=== PATIENT | male | born 1985 | race African-American/Black ===

== ENCOUNTER 2022-11-02 12:33 | Observation (INO) | payer BC ==
[~2022-11-02 12:33] MED LIST: Iopamidol 370 76% 100 ML VIAL ONE
[2022-11-02] MEDS ORDERED: Labetalol HCl 100 MG/20 ML VIAL ONE (13:09)
[2022-11-02 13:28] LABS: #Eosinphils 0.1 10x3/uL (0.0-0.5); #Monocytes 0.7 10x3/uL (0.0-1.1); #Neutrophils 4.7 10x3/uL (1.5-8.4); %Basophils 0.4 % (0.0-2.0); %Eosinophils 0.8 % (0.0-6.0); %Lymphocytes 23.3 % (18.0-47.0); %Monocytes 9.3 % (0.0-10.0); %Neutrophils 65.6 % (40.0-75.0); Hemoglobin 13.8 g/dL (13.5-17.5); Mean Corpuscular Hemoglobin 29.1 pg (27.0-33.0); Mean Corpuscular Volume 85.7 fl (81.2-95.1); Mean Platelet Volume 8.7 fl (7.4-10.4); Platelet Count 175 10x3/uL (150-450); RBC Distribution Width 13.1 % (11.5-14.5); Red Blood Cell (RBC) Count 4.74 10x6/uL (4.32-5.72); White Blood Cell (WBC) Count 7.2 10x3/uL (3.5-10.5)
[2022-11-02 13:35] LABS: PTT 28.2 sec (22.0-33.0); Prothrombin Time 11.2 sec (9.5-12.1)
[2022-11-02 13:50] LABS: ALT (SGPT) 27 U/L (8-55); AST (SGOT) 18 U/L (5-34); Albumin 4.4 g/dL (3.5-5.0); Alkaline Phosphatase 62 U/L (40-110); Anion Gap 18 mmol/L (10-20); BUN (Urea Nitrogen) 9 mg/dL (8.9-20.6); Bilirubin, Total 0.5 mg/dL (0.2-1.2); Calc. Creatinine Clearance 0 mL/min (70-130); Calcium 9.2 mg/dL (7.8-10.44); Carbon Dioxide 20 mmol/L (22-29); Chloride 105 mmol/L (98-107); Estimated GFR 113; Globulin 3.7 g/dL (2.4-3.5); Glucose 98 mg/dL (70-105); Protein, Total 8.1 g/dL (6.0-8.3); Sodium 139 mmol/L (136-145)
[2022-11-02] MEDS ORDERED: Aspirin Chewable 81 MG TAB ONE (14:52)
[2022-11-02] MEDS ORDERED: hydrALAZINE 20 MG/ML VIAL SLOW IVP PRN (15:06)
[2022-11-02] MEDS ORDERED: Ondansetron PF 4 MG/2 ML Vial IVP PRN (15:07)
[2022-11-02] MEDS ORDERED: Ondansetron ODT 4 MG TAB PO PRN (15:07)
[2022-11-02] MEDS ORDERED: Acetaminophen 325 MG TAB PO PRN (15:07)
[2022-11-02] MEDS ORDERED: hydrALAZINE 20 MG/ML VIAL ONE (16:13)
[2022-11-02 18:11] VITALS: BMI 85.7
[2022-11-02] MEDS ORDERED: Atorvastatin Calcium 40 MG TAB PO SCH (18:30)
[2022-11-02 20:18] LABS: Hemoglobin A1c 5.5 % (4.0-6.0)
[2022-11-02] MEDS: Atorvastatin Calcium 40 MG TAB PO SCH ×2 (20:35→20:36)
[2022-11-03 05:10] LABS: #Eosinphils 0.1 10x3/uL (0.0-0.5); #Monocytes 0.8 10x3/uL (0.0-1.1); %Basophils 0.4 % (0.0-2.0); %Eosinophils 1.4 % (0.0-6.0); %Lymphocytes 32.2 % (18.0-47.0); %Monocytes 10.5 % (0.0-10.0); %Neutrophils 55.1 % (40.0-75.0); Hemoglobin 13.2 g/dL (13.5-17.5); Mean Corpuscular HGB CONC 32.9 g/dL (32.0-36.0); Mean Corpuscular Hemoglobin 28.5 pg (27.0-33.0); Mean Corpuscular Volume 86.6 fl (81.2-95.1); Mean Platelet Volume 8.7 fl (7.4-10.4); Platelet Count 169 10x3/uL (150-450); RBC Distribution Width 13.3 % (11.5-14.5); Red Blood Cell (RBC) Count 4.63 10x6/uL (4.32-5.72); White Blood Cell (WBC) Count 7.3 10x3/uL (3.5-10.5)
[2022-11-03 05:23] LABS: Anion Gap 17 mmol/L (10-20); BUN (Urea Nitrogen) 8 mg/dL (8.9-20.6); Calc. Creatinine Clearance 380 mL/min (70-130); Calcium 9.2 mg/dL (7.8-10.44); Carbon Dioxide 17 mmol/L (22-29); Cardiac Risk 5.3 (Less than 4.5); Chloride 107 mmol/L (98-107); Cholesterol 158 mg/dl (< 200 Desired); Estimated GFR 117; Glucose 104 mg/dL (70-105); HDL Cholesterol 30 mg/dL (>60 Neg Risk); LDL Cholesterol, Calculated 118 mg/dL; Potassium 3.5 mmol/L (3.5-5.1); Sodium 137 mmol/L (136-145); Triglycerides 50 mg/dL (Less than 150)
[2022-11-03] MEDS: Aspirin 81 mg Enteric Coated Tablet PO SCH (09:32)
[2022-11-03] MEDS ORDERED: Amlodipine 5 MG TAB PO SCH (12:30)
[2022-11-03] MEDS: Atorvastatin Calcium 40 MG TAB PO SCH (22:23)
[2022-11-04 04:31] LABS: #Eosinphils 0.1 10x3/uL (0.0-0.5); #Monocytes 0.8 10x3/uL (0.0-1.1); #Neutrophils 4.3 10x3/uL (1.5-8.4); %Basophils 0.4 % (0.0-2.0); %Eosinophils 1.6 % (0.0-6.0); %Lymphocytes 33.8 % (18.0-47.0); %Monocytes 10.2 % (0.0-10.0); %Neutrophils 53.5 % (40.0-75.0); Hemoglobin 13.9 g/dL (13.5-17.5); Mean Corpuscular Hemoglobin 28.4 pg (27.0-33.0); Mean Corpuscular Volume 86.1 fl (81.2-95.1); Mean Platelet Volume 8.7 fl (7.4-10.4); Platelet Count 167 10x3/uL (150-450); RBC Distribution Width 13.3 % (11.5-14.5); Red Blood Cell (RBC) Count 4.89 10x6/uL (4.32-5.72); White Blood Cell (WBC) Count 8.1 10x3/uL (3.5-10.5)
[2022-11-04 04:48] LABS: Anion Gap 15 mmol/L (10-20); BUN (Urea Nitrogen) 9 mg/dL (8.9-20.6); Calc. Creatinine Clearance 366 mL/min (70-130); Calcium 9.3 mg/dL (7.8-10.44); Carbon Dioxide 20 mmol/L (22-29); Chloride 106 mmol/L (98-107); Estimated GFR 116; Glucose 92 mg/dL (70-105); Potassium 3.8 mmol/L (3.5-5.1); Sodium 137 mmol/L (136-145)
[2022-11-04] MEDS ORDERED: Amlodipine 5 MG TAB PO SCH (09:00)
[2022-11-04] MEDS: Aspirin 81 mg Enteric Coated Tablet PO SCH (10:03)
[2022-11-04] MEDS ORDERED: hydrALAZINE 20 MG/ML VIAL SLOW IVP SCH (15:45)
[2022-11-04 16:35] VITALS: TEMP 99.4
[2022-11-04 17:22] VITALS: BP 146/79
== END 2022-11-04 17:59 | disposition home or self-care (01) ==
LOC: CSHERS 12:33 → CSHTELE 16:56
PROVIDERS: ADMIT Family Medicine; ATTEND Family Medicine
DX: I16.1 Hypertensive emergency (principal); R20.0 Anesthesia of skin; R20.2 Paresthesia of skin; H53.8 Other visual disturbances; E66.01 Morbid (severe) obesity due to excess calories; R29.90 Unspecified symptoms and signs involving the nervous system; Z79.82 Long term (current) use of aspirin; Z68.43 Body mass index [BMI] 50.0-59.9, adult; R41.82 Altered mental status, unspecified
CPT/HCPCS: 70450; 70496; 70498; 80048; 80053; 80061; 83036; 84443; 84484; 85025; 85610; 85730; 93005; 93306; 94760; 96374; 96375; 96376; G0378; J0360; Q9967